=== PATIENT | female | born 1945 | race Hispanic/Latino ===

== ENCOUNTER 2017-05-05 13:10 | Observation (INO) | payer MEDICARE ==
--- NOTE | 2017-05-05 14:23 | ED PDOC ---
Arrival/HPI - General Chief Complaint: Abdominal Pain Time Seen by Provider: 05/05/17 14:12 Historian: Patient - History of Present Illness Narrative History of Present Illness (Text): 05/05/17 14:27 Patient is a 71 y/o F presenting with dysuria, frequency, hesistancy that began today. She is reporting LLQ pain radiating into the back. Reports some nausea and vomiting today. Reports diarrhea yesterday. Reports hx of diverticulitis. Denies chest pain or shortness of breath. PMD: Dr. Noah Dawkins Past Medical History - Provider Review Nursing Documentation Reviewed: Yes - Cardiac Hx Hypertension: Yes - Pulmonary Hx Respiratory Disorders: No - Neurological Hx Neurological Disorder: No - HEENT Hx HEENT Disorder: No - Renal Hx Renal Disorder: No - Endocrine/Metabolic Hx Diabetes Mellitus Type 2: Yes Hx Hypothyroidism: Yes - Hematological/Oncological Hx Blood Disorders: No - Integumentary Hx Dermatological Disorder: No - Musculoskeletal/Rheumatological Hx Arthritis: Yes Hx Falls: Yes (10 yrs ago) Hx Fractures: Yes Other/Comment: osteopenia - Gastrointestinal Hx Gastroesophageal Reflux: Yes - Genitourinary/Gynecological Hx Genitourinary Disorders: No - Psychiatric Hx Psychophysiologic Disorder: No Hx Substance Use: No - Surgical History Hx Hysterectomy: Yes Hx Orthopedic Surgery: Yes (rt leg fracture,with surgery) Family/Social History - Physician Review Nursing Documentation Reviewed: Yes Family/Social History: No Known Family HX Smoking Status: Never Smoked Hx Alcohol Use: Yes (occasionally) Hx Substance Use: No Allergies/Home Meds Allergies/Adverse Reactions: Allergies No Known Allergies Allergy (Verified 05/05/17 14:03) Home Medications: Home Meds Medication Instructions Recorded Confirmed Unobtainable 05/05/17 05/05/17 Review of Systems - Review of Systems Constitutional: absent: Fatigue, Weight Change, Fevers Respiratory: absent: SOB, Cough, Sputum, Wheezing Cardiovascular: absent: Chest Pain, Palpitations, Edema, Calf Pain, Orthopnea, Syncope Gastrointestinal: Abdominal Pain, Diarrhea, Nausea, Vomiting. absent: Constipation Genitourinary Female: Dysuria, Frequency, Urine Output Changes. absent: Hematuria, Vaginal Bleeding, Vaginal Discharge Musculoskeletal: Back Pain (L flank pain) Skin: absent: Rash, Pruritis Neurological: absent: Headache, Dizziness Psychiatric: absent: Anxiety Physical Exam Vital Signs Temp Pulse Resp BP Pulse Ox 05/05/17 16:49 68 18 155/80 H 96 05/05/17 14:03 98.3 F 64 18 123/79 95 Temperature: Afebrile Blood Pressure: Normal Pulse: Regular Respiratory Rate: Normal Appearance: Positive for: Well-Appearing, Non-Toxic, Comfortable Pain Distress: None Mental Status: Positive for: Alert and Oriented X 3 - Systems Exam Head: Present: Atraumatic, Normocephalic Pupils: Present: PERRL Extroacular Muscles: Present: EOMI Conjunctiva: Present: Normal Mouth: Present: Moist Mucous Membranes Neck: Present: Normal Range of Motion Respiratory/Chest: Present: Clear to Auscultation, Good Air Exchange. No: Respiratory Distress, Accessory Muscle Use Cardiovascular: Present: Regular Rate and Rhythm, Normal S1, S2. No: Murmurs Abdomen: No: Tenderness, Distention Back: Present: Normal Inspection, CVA Tenderness (L) Upper Extremity: Present: Normal Inspection Lower Extremity: Present: Normal Inspection Neurological: Present: GCS=15, CN II-XII Intact Psychiatric: Present: Alert, Oriented x 3 Medical Decision Making ED Course and Treatment: 05/05/17 17:51 4 mm calculus at the left UVJ with proximal hydroureteronephrosis. Additional nonobstructing left renal calculi. Mild left perinephric fluid. Tiny probable gallstone within a contracted gallbladder. Hepatic steatosis. Splenomegaly. Diverticulosis without CT evidence of acute diverticulitis. Evidence of proximal duodenal diverticulum. Additional findings as above. 05/05/17 17:55 UA shows trace leukocytes and 5-10 wbc. Labs show normal cbc and creatinine. However, patient reports uncontrolled and persistent pain and inability to tolerate po. Will give antibiotics and flomax. Urology consult placed. - Lab Interpretations Lab Results: 05/05/17 16:10 05/05/17 16:10 Lab Results 05/05/17 16:10: Sodium 141, Potassium 4.6, Chloride 102, Carbon Dioxide 29, Anion Gap 15, BUN 19, Creatinine 0.9, Est GFR ( Amer) > 60, Est GFR (Non- Af Amer) > 60, Random Glucose 161 H, Calcium 10.0, Total Bilirubin 0.5, AST 70 H , ALT 69 H, Alkaline Phosphatase 68, Total Protein 7.7, Albumin 4.2, Globulin 3.5, Albumin/Globulin Ratio 1.2 05/05/17 16:10: WBC 7.7, RBC 4.34, Hgb 13.4, Hct 39.5, MCV 91.0, MCH 30.9, MCHC 33.9, RDW 13.3, Plt Count 165, MPV 11.7 H, Gran % 84.3 H, Lymph % (Auto) 11.5 L , [place] % (Auto) 3.8, Eos % (Auto) 0.3 L, Baso % (Auto) 0.1, Gran # 6.52 H, Lymph # (Auto) 0.9 L, [place] # (Auto) 0.3, Eos # (Auto) 0.0, Baso # (Auto) 0.01 05/05/17 15:00: Urine Color Yellow, Urine Appearance Slight-cloudy, Urine pH 6.0 , Ur Specific [place] 1.025, Urine Protein 30 H, Urine Glucose (UA) Negative, Urine Ketones Negative, Urine Blood Large H, Urine Nitrate Negative, Urine Bilirubin Negative, Urine Urobilinogen 0.2, Ur Leukocyte Esterase Trace H, Urine RBC 10 - 15, Urine WBC 5 - 10, Ur Epithelial Cells 6 - 8 - RAD Interpretation Radiology Orders: 05/05/17 16:22 ABD & PELVIS W/O PO OR IV CONT [CT] Stat - Medication Orders Current Medication Orders: Ceftriaxone Sodium (Rocephin 1 Gram Ivpb) 1 gm in 100 mls @ 100 mls/hr IVPB STAT STA PRN Reason: Protocol Stop: 05/05/17 18:57 Morphine Sulfate (Morphine) 4 mg IVP STAT STA Stop: 05/05/17 18:21 Discontinued Medications Sodium Chloride (Sodium Chloride 0.9%) 500 mls @ 999 mls/hr IV .Q31M STA Stop: 05/05/17 14:57 Last Admin: 05/05/17 15:00 Dose: 999 mls/hr eMAR Start Stop Document 05/05/17 15:00 MEGGAN (Rec: 05/05/17 16:07 RG [id number]) Intravenous Solution Start Date 05/05/17 Start Time 15:00 Ketorolac Tromethamine (Toradol) 30 mg IVP STAT STA Stop: 05/05/17 14:28 Last Admin: 05/05/17 15:00 Dose: 30 mg MAR Pain Assessment Document 05/05/17 15:00 (Rec: 05/05/17 16:05 [id number] Pain Reassessment Is this a pain reassessment? Yes Location Left, Right or Bilateral Left Pain Location Body Site Abdomen Description Description Constant IVP Administration Document 05/05/17 15:00 (Rec: 05/05/17 16:05 [id number]) Charges for Administration # of IVP Administrations 1 Disposition/Present on Arrival - Present on Arrival Any Indicators Present on Arrival: No History of DVT/PE: No History of Uncontrolled Diabetes: No Urinary Catheter: No History of Decub. Ulcer: No History Surgical Site Infection Following: None - Disposition Have Diagnosis and Disposition been Completed?: Yes Diagnosis: Hydroureteronephrosis, UTI (urinary tract infection), Renal stone Disposition: HOSPITALIZED Disposition Time: 18:26 Patient Plan: Observation Condition: FAIR Referrals: Noah Dawkins MD [Primary Care Provider] - Follow up with primary Forms: [employer] (Japanese)
[2017-05-05] MEDS ORDERED: Sodium Chloride 0.9% 500 ML IV STA (14:27)
[2017-05-05 16:16] LABS: URINE BILIRUBIN NEGATIVE (NEGATIVE); URINE BLOOD LARGE (NEGATIVE); URINE COLOR YELLOW (YELLOW); URINE GLUCOSE (UA) NEGATIVE (NEGATIVE); URINE LEUKOCYTE ESTERASE TRACE Leu/uL (NEGATIVE); URINE PROTEIN 30 mg/dL (<30 mg/dL); URINE UROBILINOGEN 0.2 E.U./dL (<1 E.U./dL)
[2017-05-05 16:19] LABS: BASO # 0.01 K/mm3 (0.0-2.0); BASO % 0.1 % (0.0-3.0); EOS % 0.3 % (1.5-5.0); GRAN # 6.52 (1.4-6.5); GRAN % 84.3 % (50.0-68.0); HEMOGLOBIN 13.4 g/dL (12.0-16.0); LYMPH # 0.9 (1.2-3.4); LYMPH % 11.5 % (22.0-35.0); MEAN CORPUSCULAR HEMOGLOBIN 30.9 pg (25.0-35.0); MEAN CORPUSCULAR HGB CONC 33.9 g/dl (31.0-37.0); MEAN PLATELET VOLUME 11.7 fl (7.0-11.0); MONO # 0.3 (0.1-0.6); MONO % 3.8 % (1.0-6.0); RBC 4.34 10^6/uL (3.5-6.1); RED CELL DISTRIBUTION WIDTH 13.3 % (11.5-14.5); WHITE BLOOD COUNT 7.7 10^3/ul (4.5-11.0)
[2017-05-05 16:34] LABS: ALB/GLOB RATIO 1.2 (1.1-1.8); ALBUMIN 4.2 g/dL (3.0-4.8); ALT/SGPT 69 U/L (7-56); AST/SGOT 70 U/L (14-36); BLOOD UREA NITROGEN 19 mg/dL (7-21); GFR AFRICAN-AMERICAN > 60; GFR NON-AFRICAN AMERICAN > 60
[2017-05-05 16:41] LABS: URINE APPEARANCE SLIGHT-CLOUDY (CLEAR)
--- NOTE | 2017-05-05 17:50 | CT ---
PROCEDURE: CT Abdomen and Pelvis without Oral or IV contrast. HISTORY: L flank pain COMPARISON: CT abdomen and pelvis with contrast performed 10/05/12. TECHNIQUE: Contiguous axial images of the abdomen and pelvis. No oral or IV contrast administered. Coronal and Sagittal reformats generated. Radiation dose: Total exam DLP = 1106.60 MGy-cm. This CT exam was performed using one or more of the following dose reduction techniques: Automated exposure control, adjustment of the mA and/or kV according to patient size, and/or use of iterative reconstruction technique. FINDINGS: There is limited evaluation of the solid organs without the administration of IV contrast. LOWER THORAX: No visible consolidation, pleural effusion, or pneumothorax. Tiny hiatal hernia/distal esophageal wall thickening. LIVER: Hypoattenuation of the liver compatible with hepatic steatosis. GALLBLADDER AND BILE DUCTS: Tiny probable gallstone within a contracted gallbladder. PANCREAS: Unremarkable unenhanced appearance. SPLEEN: Splenomegaly. ADRENALS: Unremarkable unenhanced appearance. KIDNEYS AND URETERS: 4 mm calculus at the left UVJ with proximal hydroureteronephrosis. Additional nonobstructing left renal calculi. No right-sided hydronephrosis or obstructing renal calculus. Mild left perinephric fluid. BLADDER: See above. REPRODUCTIVE: Uterus is absent, presumably due to hysterectomy. APPENDIX: The appendix appears within normal limits of caliber. No secondary signs of acute appendicitis. BOWEL: The stomach is nondistended. Lack of oral contrast limits evaluation for bowel pathology. Evidence of proximal duodenal diverticulum. The bowel loops appear within normal limits of caliber without evidence of intestinal obstruction. Diverticulosis without CT evidence of acute diverticulitis. PERITONEUM: No significant free fluid. No definite free air. LYMPH NODES: No bulky lymphadenopathy identified. VASCULATURE: No aortic aneurysm. BONES: Degenerative changes. OTHER FINDINGS: Tiny fat containing umbilical hernia. IMPRESSION: 4 mm calculus at the left UVJ with proximal hydroureteronephrosis. Additional nonobstructing left renal calculi. Mild left perinephric fluid. Tiny probable gallstone within a contracted gallbladder. Hepatic steatosis. Splenomegaly. Diverticulosis without CT evidence of acute diverticulitis. Evidence of proximal duodenal diverticulum. Additional findings as above.
[2017-05-05] MEDS ORDERED: cefTRIAXone 1 gm 1 GM/100 ML BAG IVPB STA (17:58)
[2017-05-05] MEDS ORDERED: Morphine 4 mg/ml ISec IVP STA (18:20)
[2017-05-05 21:57] VITALS: BMI 37.8
[2017-05-05] MEDS ORDERED: Pneumococcal 23-Valent Vaccine IM ONE (21:57)
[2017-05-05] MEDS ORDERED: Influenza Vaccine 60 mcg/0.5 mL SYR (4YR UP) IM ONE (21:57)
[2017-05-05] MEDS ORDERED: Dextrose 5%/0.45% NS 1,000 ML IV SCH (23:45)
[2017-05-05] MEDS ORDERED: Oxycodone/Acetaminophen 5/325 mg Tab PO PRN (23:48)
[2017-05-06 01:41] VITALS: RESP 20
[2017-05-06 07:56] VITALS: BP 169/68; PULSE 66; TEMP 97.6; O2SAT 95
== END 2017-05-06 11:36 | disposition home or self-care (01) ==
LOC: ED 13:10 → ERH 18:20 → 5RNO 20:41
PROVIDERS: ADMIT Internal Medicine; ATTEND Internal Medicine
DX: N13.2 Hydronephrosis with renal and ureteral calculous obstruction (principal); N39.0 Urinary tract infection, site not specified; I10 Essential (primary) hypertension; E11.9 Type 2 diabetes mellitus without complications; K76.0 Fatty (change of) liver, not elsewhere classified; R16.1 Splenomegaly, not elsewhere classified; K57.10 Diverticulosis of small intestine without perforation or abscess without bleeding; E03.9 Hypothyroidism, unspecified; Z79.84 Long term (current) use of oral hypoglycemic drugs
CPT/HCPCS: 74176; 80053; 81001; 82948; 85025; 87086; 88300; 96365; 96375; 99285; G0378; J0696; J1885; J2270; J7040; J7042

== ENCOUNTER 2018-05-01 06:11 | Day surgery (SDC) | payer MEDICARE ==
[2018-05-01] MEDS ORDERED: Propofol 10 mg/ml Inj (20 ML) ONE ×2 (08:00→09:13)
[2018-05-01] MEDS ORDERED: Lidocaine 1% Inj (20ml) ONE (08:02)
[2018-05-01] MEDS ORDERED: Sodium Chloride 0.9% 1,000 ML IV SCH (09:45)
[2018-05-01 10:44] VITALS: TEMP 98
[2018-05-01 11:11] VITALS: BP 138/82; PULSE 76; RESP 16; O2SAT 96
== END 2018-05-01 11:24 | disposition home or self-care (01) ==
LOC: ENDO 06:11
PROVIDERS: ATTEND Internal Medicine Gastroenterology
DX: K29.70 Gastritis, unspecified, without bleeding (principal); K44.9 Diaphragmatic hernia without obstruction or gangrene; K29.80 Duodenitis without bleeding; K20.9 Esophagitis, unspecified; D12.5 Benign neoplasm of sigmoid colon; K63.5 Polyp of colon; K57.30 Diverticulosis of large intestine without perforation or abscess without bleeding; K64.0 First degree hemorrhoids; R19.7 Diarrhea, unspecified; I10 Essential (primary) hypertension; E11.9 Type 2 diabetes mellitus without complications; E03.9 Hypothyroidism, unspecified; Z79.84 Long term (current) use of oral hypoglycemic drugs
CPT/HCPCS: 43239; 45385; 82948; 88305; 88342; J2704; J3010; J7030; J7040